=== PATIENT | male | born 1935 | race Caucasian/White ===

== ENCOUNTER 2023-04-16 09:45 | Inpatient (IN) | payer MEDICARE, OTHER ==
[2023-04-16] MEDS ORDERED: Ondansetron PF 4 MG/2 ML Vial ONE (10:12)
[2023-04-16] MEDS ORDERED: Morphine 4 MG/ML VIAL ONE (10:12)
[2023-04-16 10:32] LABS: #Eosinphils 0.1 10x3/uL (0.0-0.5); #Monocytes 0.3 10x3/uL (0.0-1.1); #Neutrophils 7.4 10x3/uL (1.5-8.4); %Basophils 0.4 % (0.0-2.0); %Lymphocytes 17.1 % (18.0-47.0); %Monocytes 3.1 % (0.0-10.0); %Neutrophils 77.8 % (40.0-75.0); Hematocrit 41.9 % (38.8-50.0); Hemoglobin 14.1 g/dL (13.5-17.5); Mean Corpuscular HGB CONC 33.7 g/dL (32.0-36.0); Mean Corpuscular Hemoglobin 28.3 pg (27.0-33.0); Mean Platelet Volume 10.2 fl (7.4-10.4); Platelet Count 197 10x3/uL (150-450); RBC Distribution Width 14.6 % (11.5-14.5); Red Blood Cell (RBC) Count 4.99 10x6/uL (4.32-5.72); White Blood Cell (WBC) Count 9.5 10x3/uL (3.5-10.5)
[2023-04-16 10:50] LABS: ALT (SGPT) 102 U/L (8-55); AST (SGOT) 203 U/L (5-34); Albumin 3.8 g/dL (3.4-4.8); Alkaline Phosphatase 240 U/L (40-110); Anion Gap 17 mmol/L (10-20); BUN (Urea Nitrogen) 19 mg/dL (8.4-25.7); Bilirubin, Total 1.5 mg/dL (0.2-1.2); Calc. Creatinine Clearance 0 mL/min (70-130); Calcium 9.8 mg/dL (7.8-10.44); Carbon Dioxide 19 mmol/L (23-31); Chloride 105 mmol/L (98-107); Estimated GFR 66; Globulin 2.1 g/dL (2.4-3.5); Glucose 181 mg/dL (83-110); Magnesium 1.9 mg/dL (1.6-2.6); Potassium 4.2 mmol/L (3.5-5.1); Protein, Total 5.9 g/dL (5.8-8.1); Sodium 137 mmol/L (136-145)
[2023-04-16 10:59] LABS: Troponin I Less than 0.010 ng/mL (< 0.028)
[2023-04-16 11:19] LABS: Lipase 4643 U/L (8-78)
[2023-04-16] MEDS ORDERED: Piperacillin/Tazobactam 4.5 GM VIAL ONE (12:19)
[2023-04-16] MEDS ORDERED: Bupivacaine PF 0.5% 30 ML VIAL ONE (12:30)
[2023-04-16] MEDS ORDERED: Iopamidol 30 ML ONE (12:31)
[2023-04-16] MEDS ORDERED: Ondansetron ODT 4 MG TAB PO PRN (12:48)
[2023-04-16] MEDS ORDERED: TETANUS, DIPHTHERIA TOX,ADULT (TDVAX) 0.5 ML VIAL IM ONE (12:48)
[2023-04-16] MEDS ORDERED: Ondansetron PF 4 MG/2 ML Vial IVP PRN (12:48)
[2023-04-16] MEDS ORDERED: hydrALAZINE 20 MG/ML VIAL SLOW IVP PRN (12:48)
[2023-04-16] MEDS ORDERED: Acetaminophen 500 MG TAB PO SCH (13:00)
[2023-04-16] MEDS ORDERED: Iopamidol 370 76% 100 ML VIAL ONE (13:53)
[2023-04-16] MEDS ORDERED: Dexamethasone 4 mg/ml Vial ONE (14:22)
[2023-04-16] MEDS ORDERED: Glycopyrrolate 0.2 MG/ML 5 ML SYRINGE ONE (14:22)
[2023-04-16] MEDS ORDERED: Lidocaine 2% PF 5 ML VIAL ONE (14:22)
[2023-04-16] MEDS ORDERED: Fentanyl 250 MCG/5 ML VIAL ONE (14:22)
[2023-04-16] MEDS ORDERED: Rocuronium Bromide 10 MG/ML (10ML VIAL) ONE (14:22)
[2023-04-16] MEDS ORDERED: PROPOFOL 20 ML ONE ×2 (14:22→15:12)
[2023-04-16] MEDS ORDERED: Glucagon 1 MG/ML KIT ONE (14:39)
[2023-04-16] MEDS ORDERED: ePHEDrine Sulfate 50 MG/10 ML VIAL ONE (14:43)
[2023-04-16] MEDS ORDERED: SUGAMMADEX SODIUM 200 MG/2 ML VIAL ONE (14:49)
[2023-04-16 16:04] LABS: Bilirubin 1+ (Negative); Blood, Urine 10 (Negative); Clarity Clear (Clear); Glucose, Urine (Dipstick) Normal (Negative); Ketone, Urine Negative (Negative); Leukocyte Negative (Negative); Nitrite Positive (Negative); Protein, Urine (Dipstick) 15 mg/dl (Neg-Trace); Specific Gravity, Urine 1.015 (1.005-1.030)
[2023-04-16 16:18] LABS: Bacteria/HPF Rare-Few HPF (None Seen); RBC/HPF 0-3 HPF (0-3); Squamous Epithelial 0-3 HPF (0-3); WBC/HPF 0-3 HPF (0-3)
[2023-04-16] MEDS: Piperacillin/Tazobactam 3.375 GM in Sodium Chloride 0.9% 100 ML IVPB SCH (17:09)
[2023-04-16] MEDS: Acetaminophen 500 MG TAB PO SCH ×2 (17:12→20:43)
[2023-04-16] MEDS: Sodium Chloride 0.45% 1,000 ML IV SCH ×3 (17:20→23:52)
[2023-04-16] MEDS: Ketorolac Tromethamine 30 MG/ML VIAL IVP SCH ×2 (18:26→23:52)
[2023-04-16] MEDS: Tamsulosin HCl 0.4 MG CAP PO SCH (20:43)
[2023-04-17 03:01] LABS: Anion Gap 13 mmol/L (10-20); BUN (Urea Nitrogen) 22 mg/dL (8.4-25.7); Calc. Creatinine Clearance 61 mL/min (70-130); Calcium 9.1 mg/dL (7.8-10.44); Carbon Dioxide 20 mmol/L (23-31); Chloride 105 mmol/L (98-107); Estimated GFR 70; Glucose 147 mg/dL (83-110); Potassium 4.9 mmol/L (3.5-5.1); Sodium 133 mmol/L (136-145)
[2023-04-17 03:16] LABS: #Monocytes 0.7 10x3/uL (0.0-1.1); #Neutrophils 11.5 10x3/uL (1.5-8.4); %Basophils 0.1 % (0.0-2.0); %Lymphocytes 9.1 % (18.0-47.0); %Monocytes 4.9 % (0.0-10.0); %Neutrophils 85.5 % (40.0-75.0); Hematocrit 38.3 % (38.8-50.0); Hemoglobin 13.1 g/dL (13.5-17.5); Mean Corpuscular HGB CONC 34.2 g/dL (32.0-36.0); Mean Corpuscular Hemoglobin 28.1 pg (27.0-33.0); Mean Corpuscular Volume 82.2 fl (81.2-95.1); Mean Platelet Volume 9.7 fl (7.4-10.4); Platelet Count 183 10x3/uL (150-450); RBC Distribution Width 14.9 % (11.5-14.5); Red Blood Cell (RBC) Count 4.66 10x6/uL (4.32-5.72); White Blood Cell (WBC) Count 13.4 10x3/uL (3.5-10.5)
[2023-04-17 03:18] LABS: Lipase 1633 U/L (8-78)
[2023-04-17 04:09] LABS: ALT (SGPT) 246 U/L (8-55); AST (SGOT) 310 U/L (5-34); Albumin 3.2 g/dL (3.4-4.8); Alkaline Phosphatase 246 U/L (40-110); Bilirubin, Total 3.3 mg/dL (0.2-1.2); Globulin 2.2 g/dL (2.4-3.5); Protein, Total 5.4 g/dL (5.8-8.1)
[2023-04-17] MEDS: Ketorolac Tromethamine 30 MG/ML VIAL IVP SCH ×2 (05:48→12:06)
[2023-04-17] MEDS: Sodium Chloride 0.45% 1,000 ML IV SCH ×3 (06:22→20:14)
[2023-04-17] MEDS: Piperacillin/Tazobactam 3.375 GM in Sodium Chloride 0.9% 100 ML IVPB SCH ×3 (07:51→17:43)
[2023-04-17] MEDS: dilTIAZem CD 120 MG CAP PO SCH (07:52)
[2023-04-17] MEDS: Acetaminophen 500 MG TAB PO SCH ×4 (07:52→20:15)
[2023-04-17] MEDS ORDERED: Pantoprazole 40 MG VIAL IVP SCH (09:00)
[2023-04-17] MEDS ORDERED: Iopamidol 30 ML ONE (13:39)
[2023-04-17] MEDS ORDERED: Indomethacin 50 MG SUPP ONE (13:40)
[2023-04-17] MEDS: Morphine 2 MG/ML VIAL SLOW IVP PRN (14:12)
[2023-04-17] MEDS ORDERED: fentaNYL 50 mcg/mL 1 mL Vial ONE (14:31)
[2023-04-17] MEDS ORDERED: Succinylcholine 200 MG/10 ml SYRINGE FS ONE (14:31)
[2023-04-17] MEDS ORDERED: Dexamethasone 4 mg/ml Vial ONE (14:31)
[2023-04-17] MEDS ORDERED: Lidocaine 1% PF 5 ML VIAL ONE (14:31)
[2023-04-17] MEDS ORDERED: Ondansetron PF 4 MG/2 ML Vial ONE (14:31)
[2023-04-17] MEDS ORDERED: PHENYLEPHRINE-NS 100 MCG/ML 10 ML SYRINGE ONE ×2 (14:31→16:09)
[2023-04-17] MEDS ORDERED: PROPOFOL 20 ML ONE (14:31)
[2023-04-17] MEDS ORDERED: Glucagon 1 MG/ML KIT ONE (16:25)
[2023-04-17] MEDS: Phenazopyridine HCl 95 MG TAB PO SCH (20:15)
[2023-04-17] MEDS: Pantoprazole 40 MG VIAL IVP SCH (20:15)
[2023-04-17] MEDS: Tamsulosin HCl 0.4 MG CAP PO SCH (20:15)
[2023-04-18] MEDS: Piperacillin/Tazobactam 3.375 GM in Sodium Chloride 0.9% 100 ML IVPB SCH ×3 (00:03→17:15)
[2023-04-18] MEDS: Sodium Chloride 0.45% 1,000 ML IV SCH ×3 (03:26→17:17)
[2023-04-18 04:10] LABS: Anion Gap 16 mmol/L (10-20); BUN (Urea Nitrogen) 29 mg/dL (8.4-25.7); Calc. Creatinine Clearance 57 mL/min (70-130); Calcium 8.9 mg/dL (7.8-10.44); Carbon Dioxide 17 mmol/L (23-31); Chloride 103 mmol/L (98-107); Estimated GFR 65; Glucose 126 mg/dL (83-110); Potassium 4.5 mmol/L (3.5-5.1); Sodium 131 mmol/L (136-145)
[2023-04-18 04:11] LABS: ALT (SGPT) 216 U/L (8-55); AST (SGOT) 170 U/L (5-34); Albumin 3.2 g/dL (3.4-4.8); Alkaline Phosphatase 227 U/L (40-110); Bilirubin, Direct 4.4 mg/dL (0.1-0.3); Bilirubin, Total 5.1 mg/dL (0.2-1.2); Protein, Total 5.4 g/dL (5.8-8.1)
[2023-04-18 04:22] LABS: Lipase 1378 U/L (8-78)
[2023-04-18 04:28] LABS: #Monocytes 0.5 10x3/uL (0.0-1.1); #Neutrophils 16.2 10x3/uL (1.5-8.4); %Basophils 0.2 % (0.0-2.0); %Lymphocytes 7.1 % (18.0-47.0); %Monocytes 2.6 % (0.0-10.0); %Neutrophils 89.3 % (40.0-75.0); Hematocrit 38.1 % (38.8-50.0); Mean Corpuscular HGB CONC 34.1 g/dL (32.0-36.0); Mean Corpuscular Volume 82.1 fl (81.2-95.1); Mean Platelet Volume 10.1 fl (7.4-10.4); Platelet Count 193 10x3/uL (150-450); RBC Distribution Width 15.2 % (11.5-14.5); Red Blood Cell (RBC) Count 4.64 10x6/uL (4.32-5.72); White Blood Cell (WBC) Count 18.1 10x3/uL (3.5-10.5)
[2023-04-18] MEDS: Morphine 4 MG/ML VIAL SLOW IVP PRN (09:12)
[2023-04-18] MEDS: Pantoprazole 40 MG VIAL IVP SCH ×2 (09:17→22:32)
[2023-04-18] MEDS: dilTIAZem CD 120 MG CAP PO SCH (10:02)
[2023-04-18] MEDS: Phenazopyridine HCl 95 MG TAB PO SCH ×3 (10:03→17:20)
[2023-04-18] MEDS: Acetaminophen 500 MG TAB PO SCH ×4 (10:03→22:31)
[2023-04-18] MEDS: Sodium Bicarbonate Tab 325 MG TAB PO SCH (10:18)
[2023-04-18] MEDS ORDERED: Furosemide 20 MG/2 ML VIAL SLOW IVP SCH (11:30)
[2023-04-18] MEDS: Morphine 2 MG/ML VIAL SLOW IVP PRN (14:47)
[2023-04-18] MEDS: Tamsulosin HCl 0.4 MG CAP PO SCH (22:31)
[2023-04-19] MEDS: Sodium Chloride 0.45% 1,000 ML IV SCH ×2 (01:00→07:40)
[2023-04-19] MEDS: Piperacillin/Tazobactam 3.375 GM in Sodium Chloride 0.9% 100 ML IVPB SCH ×3 (01:21→18:15)
[2023-04-19] MEDS: Morphine 4 MG/ML VIAL SLOW IVP PRN (01:32)
[2023-04-19 04:54] LABS: ALT (SGPT) 170 U/L (8-55); AST (SGOT) 95 U/L (5-34); Alkaline Phosphatase 198 U/L (40-110); Anion Gap 14 mmol/L (10-20); BUN (Urea Nitrogen) 23 mg/dL (8.4-25.7); Bilirubin, Total 5.2 mg/dL (0.2-1.2); Calc. Creatinine Clearance 72 mL/min (70-130); Calcium 8.8 mg/dL (7.8-10.44); Carbon Dioxide 20 mmol/L (23-31); Chloride 99 mmol/L (98-107); Estimated GFR 83; Globulin 2.2 g/dL (2.4-3.5); Glucose 94 mg/dL (83-110); Lipase 251 U/L (8-78); Protein, Total 5.2 g/dL (5.8-8.1); Sodium 129 mmol/L (136-145)
[2023-04-19 04:56] LABS: #Monocytes 0.8 10x3/uL (0.0-1.1); #Neutrophils 16.4 10x3/uL (1.5-8.4); %Basophils 0.1 % (0.0-2.0); %Eosinophils 0.1 % (0.0-6.0); %Monocytes 4.2 % (0.0-10.0); %Neutrophils 86.6 % (40.0-75.0); Hematocrit 36.6 % (38.8-50.0); Hemoglobin 12.5 g/dL (13.5-17.5); Mean Corpuscular HGB CONC 34.2 g/dL (32.0-36.0); Mean Corpuscular Hemoglobin 27.5 pg (27.0-33.0); Mean Corpuscular Volume 80.6 fl (81.2-95.1); Mean Platelet Volume 9.9 fl (7.4-10.4); Platelet Count 211 10x3/uL (150-450); RBC Distribution Width 15.3 % (11.5-14.5); Red Blood Cell (RBC) Count 4.54 10x6/uL (4.32-5.72); White Blood Cell (WBC) Count 18.9 10x3/uL (3.5-10.5)
[2023-04-19] MEDS ORDERED: Furosemide 40 MG/4 ML VIAL ONE ×2 (08:16→08:40)
[2023-04-19] MEDS ORDERED: Metoprolol Tartrate 5 MG/5 ML VIAL ONE ×2 (08:27→08:37)
[2023-04-19] MEDS: Metoprolol Tartrate 5 MG/5 ML VIAL IVP PRN ×2 (08:27→08:37)
[2023-04-19] MEDS ORDERED: Ipratropium/Albuterol 3 ML NEB ONE (08:33)
[2023-04-19] MEDS ORDERED: Furosemide 100 MG/10 ML VIAL SLOW IVP SCH (09:00)
[2023-04-19] MEDS: Morphine 2 MG/ML VIAL SLOW IVP PRN (09:00)
[2023-04-19] MEDS ORDERED: Vancomycin 1.5 GRAM/300 ML BAG 1.5 GM in Premix Bag 1 BAG IVPB SCH ×2 (11:30→15:00)
[2023-04-19] MEDS: Acetaminophen 500 MG TAB PO SCH ×5 (12:32→20:19)
[2023-04-19] MEDS: Phenazopyridine HCl 95 MG TAB PO SCH ×4 (12:33→18:07)
[2023-04-19] MEDS: dilTIAZem CD 120 MG CAP PO SCH (12:52)
[2023-04-19] MEDS: Pantoprazole 40 MG VIAL IVP SCH ×2 (12:53→20:20)
[2023-04-19] MEDS ORDERED: Sodium Chloride 0.9% 250 ML IV SCH (13:00)
[2023-04-19] MEDS: Azithromycin 500 MG in Sodium Chloride 0.9% 250 ML 250 ML IVPB SCH (14:57)
[2023-04-19] MEDS: Sodium Bicarbonate Tab 325 MG TAB PO SCH (15:05)
[2023-04-19 15:25] LABS: Troponin I 0.015 ng/mL (< 0.028)
[2023-04-19] MEDS: Tamsulosin HCl 0.4 MG CAP PO SCH (20:20)
[2023-04-20] MEDS ORDERED: Haloperidol Lactate 5 MG/ML VIAL IM SCH (00:15)
[2023-04-20] MEDS: Morphine 2 MG/ML VIAL SLOW IVP PRN ×3 (00:20→22:24)
[2023-04-20] MEDS: Piperacillin/Tazobactam 3.375 GM in Sodium Chloride 0.9% 100 ML IVPB SCH ×3 (00:31→17:18)
[2023-04-20 07:34] LABS: ALT (SGPT) 92 U/L (8-55); AST (SGOT) 37 U/L (5-34); Alkaline Phosphatase 160 U/L (40-110); Anion Gap 15 mmol/L (10-20); BUN (Urea Nitrogen) 27 mg/dL (8.4-25.7); Bilirubin, Total 5.7 mg/dL (0.2-1.2); Calc. Creatinine Clearance 59 mL/min (70-130); Carbon Dioxide 21 mmol/L (23-31); Chloride 100 mmol/L (98-107); Estimated GFR 68; Globulin 2.1 g/dL (2.4-3.5); Glucose 101 mg/dL (83-110); Potassium 3.6 mmol/L (3.5-5.1); Protein, Total 5.1 g/dL (5.8-8.1); Sodium 132 mmol/L (136-145)
[2023-04-20 07:35] LABS: Hematocrit 34.4 % (38.8-50.0); Hemoglobin 11.8 g/dL (13.5-17.5); Mean Corpuscular HGB CONC 34.3 g/dL (32.0-36.0); Mean Corpuscular Hemoglobin 27.8 pg (27.0-33.0); Mean Corpuscular Volume 80.9 fl (81.2-95.1); Mean Platelet Volume 10.1 fl (7.4-10.4); Platelet Count 185 10x3/uL (150-450); RBC Distribution Width 15.6 % (11.5-14.5); Red Blood Cell (RBC) Count 4.25 10x6/uL (4.32-5.72); White Blood Cell (WBC) Count 15.2 10x3/uL (3.5-10.5)
[2023-04-20 08:20] LABS: MDiff Complete? YES
[2023-04-20 08:23] LABS: Band 8 % (5-11); Lymphocytes 9 % (21-51); Monocytes 2 % (0-10); Neutrophil 81 % (42-75); RBC Morph Comment Within Normal Limits
[2023-04-20 08:24] LABS: Platelet Adequacy Comment Appears Adequate
[2023-04-20] MEDS: Pantoprazole 40 MG VIAL IVP SCH ×2 (08:51→20:53)
[2023-04-20] MEDS: Sodium Bicarbonate Tab 325 MG TAB PO SCH (09:37)
[2023-04-20] MEDS: dilTIAZem CD 120 MG CAP PO SCH (09:37)
[2023-04-20] MEDS: Acetaminophen 500 MG TAB PO SCH ×4 (09:37→20:52)
[2023-04-20] MEDS: Phenazopyridine HCl 95 MG TAB PO SCH ×3 (09:37→16:34)
[2023-04-20] MEDS ORDERED: Furosemide 40 MG/4 ML VIAL SLOW IVP SCH (10:00)
[2023-04-20] MEDS: Azithromycin 500 MG in Sodium Chloride 0.9% 250 ML 250 ML IVPB SCH (10:26)
[2023-04-20] MEDS: VANCOMYCIN 1.25 GM/250 ML BAG 1.25 GM in Premix Bag 1 BAG IVPB SCH (15:19)
[2023-04-20] MEDS: Tamsulosin HCl 0.4 MG CAP PO SCH (20:53)
[2023-04-21] MEDS: Piperacillin/Tazobactam 3.375 GM in Sodium Chloride 0.9% 100 ML IVPB SCH ×3 (00:33→17:26)
[2023-04-21 03:41] LABS: #Eosinphils 0.1 10x3/uL (0.0-0.5); #Monocytes 0.6 10x3/uL (0.0-1.1); #Neutrophils 11.7 10x3/uL (1.5-8.4); %Basophils 0.2 % (0.0-2.0); %Eosinophils 0.5 % (0.0-6.0); %Lymphocytes 10.2 % (18.0-47.0); %Monocytes 4.1 % (0.0-10.0); %Neutrophils 84.1 % (40.0-75.0); Hematocrit 31.4 % (38.8-50.0); Hemoglobin 10.9 g/dL (13.5-17.5); Mean Corpuscular HGB CONC 34.7 g/dL (32.0-36.0); Mean Corpuscular Hemoglobin 27.9 pg (27.0-33.0); Mean Corpuscular Volume 80.5 fl (81.2-95.1); Mean Platelet Volume 10.3 fl (7.4-10.4); Platelet Count 190 10x3/uL (150-450); RBC Distribution Width 15.3 % (11.5-14.5); White Blood Cell (WBC) Count 13.9 10x3/uL (3.5-10.5)
[2023-04-21 03:48] LABS: ALT (SGPT) 61 U/L (8-55); AST (SGOT) 28 U/L (5-34); Alkaline Phosphatase 143 U/L (40-110); Anion Gap 12 mmol/L (10-20); BUN (Urea Nitrogen) 21 mg/dL (8.4-25.7); Bilirubin, Total 5.5 mg/dL (0.2-1.2); Calc. Creatinine Clearance 73 mL/min (70-130); Calcium 9.2 mg/dL (7.8-10.44); Carbon Dioxide 24 mmol/L (23-31); Chloride 98 mmol/L (98-107); Estimated GFR 84; Glucose 111 mg/dL (83-110); Sodium 131 mmol/L (136-145)
[2023-04-21] MEDS: Potassium Chloride 20 MEQ in Premix Bag 1 BAG IVPB SCH ×3 (04:35→08:14)
[2023-04-21 04:50] LABS: Magnesium 1.7 mg/dL (1.6-2.6)
[2023-04-21] MEDS: Pantoprazole 40 MG VIAL IVP SCH ×2 (08:11→20:50)
[2023-04-21] MEDS: Acetaminophen 500 MG TAB PO SCH ×4 (08:12→20:49)
[2023-04-21] MEDS: Sodium Bicarbonate Tab 325 MG TAB PO SCH (08:12)
[2023-04-21] MEDS: dilTIAZem CD 120 MG CAP PO SCH (08:13)
[2023-04-21] MEDS: Phenazopyridine HCl 95 MG TAB PO SCH ×3 (08:14→17:25)
[2023-04-21] MEDS ORDERED: Ketorolac Tromethamine 30 MG/ML VIAL IM SCH (10:00)
[2023-04-21] MEDS ORDERED: Ipratropium/Albuterol 3 ML NEB ONE (11:05)
[2023-04-21] MEDS ORDERED: Ipratropium/Albuterol 3 ML NEB NEB SCH (12:00)
[2023-04-21] MEDS: Azithromycin 500 MG in Sodium Chloride 0.9% 250 ML 250 ML IVPB SCH (12:23)
[2023-04-21] MEDS: Bisacodyl 10 MG SUPP PR SCH ×2 (12:23→12:38)
[2023-04-21 14:26] LABS: Vancomycin, Trough 8.3 ug/mL
[2023-04-21] MEDS: VANCOMYCIN 1.25 GM/250 ML BAG 1.25 GM in Premix Bag 1 BAG IVPB SCH (15:24)
[2023-04-21] MEDS ORDERED: Morphine 2 MG/ML VIAL SLOW IVP SCH (15:30)
[2023-04-21] MEDS: Ipratropium/Albuterol 3 ML NEB NEB SCH (19:25)
[2023-04-21] MEDS: Tamsulosin HCl 0.4 MG CAP PO SCH (20:49)
[2023-04-22] MEDS: Piperacillin/Tazobactam 3.375 GM in Sodium Chloride 0.9% 100 ML IVPB SCH ×3 (00:02→16:17)
[2023-04-22] MEDS: Ipratropium/Albuterol 3 ML NEB NEB SCH ×4 (00:24→20:45)
[2023-04-22 03:47] LABS: #Eosinphils 0.1 10x3/uL (0.0-0.5); #Monocytes 0.6 10x3/uL (0.0-1.1); %Basophils 0.3 % (0.0-2.0); %Eosinophils 1.2 % (0.0-6.0); %Lymphocytes 10.4 % (18.0-47.0); %Neutrophils 81.8 % (40.0-75.0); Hematocrit 32.9 % (38.8-50.0); Hemoglobin 11.2 g/dL (13.5-17.5); Mean Corpuscular Hemoglobin 27.8 pg (27.0-33.0); Mean Corpuscular Volume 81.6 fl (81.2-95.1); Mean Platelet Volume 10.2 fl (7.4-10.4); Platelet Count 212 10x3/uL (150-450); RBC Distribution Width 15.5 % (11.5-14.5); Red Blood Cell (RBC) Count 4.03 10x6/uL (4.32-5.72)
[2023-04-22 04:21] LABS: ALT (SGPT) 61 U/L (8-55); AST (SGOT) 45 U/L (5-34); Albumin 2.9 g/dL (3.4-4.8); Alkaline Phosphatase 185 U/L (40-110); Anion Gap 13 mmol/L (10-20); BUN (Urea Nitrogen) 24 mg/dL (8.4-25.7); Bilirubin, Total 4.9 mg/dL (0.2-1.2); Calc. Creatinine Clearance 79 mL/min (70-130); Calcium 9.9 mg/dL (7.8-10.44); Carbon Dioxide 24 mmol/L (23-31); Chloride 100 mmol/L (98-107); Estimated GFR 86; Globulin 2.3 g/dL (2.4-3.5); Glucose 131 mg/dL (83-110); Potassium 3.6 mmol/L (3.5-5.1); Protein, Total 5.2 g/dL (5.8-8.1); Sodium 133 mmol/L (136-145)
[2023-04-22] MEDS: Magnesium Citrate 300 ML BOT PO SCH ×2 (05:12→05:31)
[2023-04-22 05:44] VITALS: BMI 26.9
[2023-04-22] MEDS ORDERED: Simethicone Chewable 80 MG TAB PO SCH (06:00)
[2023-04-22] MEDS: Pantoprazole 40 MG VIAL IVP SCH ×2 (07:59→20:24)
[2023-04-22] MEDS: Acetaminophen 500 MG TAB PO SCH ×5 (08:04→20:24)
[2023-04-22] MEDS: Phenazopyridine HCl 95 MG TAB PO SCH ×3 (08:06→17:53)
[2023-04-22] MEDS: Sodium Bicarbonate Tab 325 MG TAB PO SCH (08:06)
[2023-04-22] MEDS: dilTIAZem CD 120 MG CAP PO SCH (08:07)
[2023-04-22] MEDS: VANCOMYCIN 1.25 GM/250 ML BAG 1.25 GM in Premix Bag 1 BAG IVPB SCH (09:23)
[2023-04-22] MEDS ORDERED: traMADol HCl 50 MG TAB PO PRN (10:09)
[2023-04-22] MEDS: Azithromycin 500 MG in Sodium Chloride 0.9% 250 ML 250 ML IVPB SCH (11:17)
[2023-04-22] MEDS ORDERED: Bisacodyl 10 MG SUPP PR SCH (11:30)
[2023-04-22] MEDS ORDERED: Bisacodyl 10 MG SUPP PR PRN (12:19)
[2023-04-22] MEDS ORDERED: Morphine 2 MG/ML VIAL SLOW IVP SCH (12:45)
[2023-04-22] MEDS: Tamsulosin HCl 0.4 MG CAP PO SCH (20:24)
[2023-04-23] MEDS: Ipratropium/Albuterol 3 ML NEB NEB SCH ×4 (01:20→19:25)
[2023-04-23] MEDS: Piperacillin/Tazobactam 3.375 GM in Sodium Chloride 0.9% 100 ML IVPB SCH ×3 (01:24→17:18)
[2023-04-23 02:06] LABS: #Eosinphils 0.1 10x3/uL (0.0-0.5); #Monocytes 0.6 10x3/uL (0.0-1.1); #Neutrophils 7.7 10x3/uL (1.5-8.4); %Basophils 0.2 % (0.0-2.0); %Eosinophils 0.8 % (0.0-6.0); %Lymphocytes 15.1 % (18.0-47.0); %Monocytes 6.2 % (0.0-10.0); %Neutrophils 75.6 % (40.0-75.0); Hematocrit 31.5 % (38.8-50.0); Hemoglobin 10.8 g/dL (13.5-17.5); Mean Corpuscular HGB CONC 34.3 g/dL (32.0-36.0); Mean Corpuscular Hemoglobin 28.1 pg (27.0-33.0); Mean Platelet Volume 9.9 fl (7.4-10.4); Platelet Count 233 10x3/uL (150-450); RBC Distribution Width 15.6 % (11.5-14.5); Red Blood Cell (RBC) Count 3.84 10x6/uL (4.32-5.72); White Blood Cell (WBC) Count 10.1 10x3/uL (3.5-10.5)
[2023-04-23 02:11] LABS: Vancomycin, Trough 10.8 ug/mL
[2023-04-23] MEDS: VANCOMYCIN 1.25 GM/250 ML BAG 1.25 GM in Premix Bag 1 BAG IVPB SCH (04:28)
[2023-04-23 09:54] LABS: ALT (SGPT) 67 U/L (8-55); AST (SGOT) 52 U/L (5-34); Alkaline Phosphatase 224 U/L (40-110); Anion Gap 14 mmol/L (10-20); BUN (Urea Nitrogen) 26 mg/dL (8.4-25.7); Bilirubin, Direct 3.6 mg/dL (0.1-0.3); Bilirubin, Total 4.6 mg/dL (0.2-1.2); Calc. Creatinine Clearance 83 mL/min (70-130); Calcium 9.4 mg/dL (7.8-10.44); Carbon Dioxide 25 mmol/L (23-31); Chloride 102 mmol/L (98-107); Estimated GFR 88; Glucose 125 mg/dL (83-110); Potassium 4.1 mmol/L (3.5-5.1); Protein, Total 5.2 g/dL (5.8-8.1); Sodium 137 mmol/L (136-145)
[2023-04-23] MEDS: Pantoprazole 40 MG VIAL IVP SCH ×2 (10:43→20:17)
[2023-04-23] MEDS: fentaNYL 50 mcg/mL 1 mL Vial SLOW IVP PRN ×2 (11:20→17:18)
[2023-04-23] MEDS: Acetaminophen 500 MG TAB PO SCH ×3 (12:12→20:03)
[2023-04-23] MEDS: Sodium Bicarbonate Tab 325 MG TAB PO SCH (12:13)
[2023-04-23] MEDS: Polyethylene Glycol 3350 17 GM Packet PO SCH ×2 (12:13→20:03)
[2023-04-23] MEDS: Phenazopyridine HCl 95 MG TAB PO SCH ×3 (12:13→17:08)
[2023-04-23] MEDS: dilTIAZem CD 120 MG CAP PO SCH (12:57)
[2023-04-23] MEDS: Tamsulosin HCl 0.4 MG CAP PO SCH (20:03)
[2023-04-24] MEDS: Piperacillin/Tazobactam 3.375 GM in Sodium Chloride 0.9% 100 ML IVPB SCH ×3 (00:39→16:49)
[2023-04-24] MEDS: Ipratropium/Albuterol 3 ML NEB NEB SCH ×3 (01:15→13:45)
[2023-04-24 03:52] LABS: #Basophils 0.1 10x3/uL (0.0-0.2); #Eosinphils 0.1 10x3/uL (0.0-0.5); #Monocytes 0.7 10x3/uL (0.0-1.1); #Neutrophils 8.4 10x3/uL (1.5-8.4); %Basophils 0.5 % (0.0-2.0); %Eosinophils 0.9 % (0.0-6.0); %Lymphocytes 12.5 % (18.0-47.0); %Monocytes 6.7 % (0.0-10.0); Hematocrit 32.2 % (38.8-50.0); Hemoglobin 10.7 g/dL (13.5-17.5); Mean Corpuscular HGB CONC 33.2 g/dL (32.0-36.0); Mean Corpuscular Hemoglobin 27.6 pg (27.0-33.0); Platelet Count 261 10x3/uL (150-450); RBC Distribution Width 15.9 % (11.5-14.5); Red Blood Cell (RBC) Count 3.88 10x6/uL (4.32-5.72)
[2023-04-24 04:03] LABS: ALT (SGPT) 78 U/L (8-55); AST (SGOT) 65 U/L (5-34); Alkaline Phosphatase 257 U/L (40-110); Anion Gap 13 mmol/L (10-20); BUN (Urea Nitrogen) 32 mg/dL (8.4-25.7); Bilirubin, Direct 2.6 mg/dL (0.1-0.3); Bilirubin, Total 3.7 mg/dL (0.2-1.2); Calc. Creatinine Clearance 84 mL/min (70-130); Calcium 9.2 mg/dL (7.8-10.44); Carbon Dioxide 24 mmol/L (23-31); Chloride 103 mmol/L (98-107); Estimated GFR 88; Glucose 122 mg/dL (83-110); Potassium 4.3 mmol/L (3.5-5.1); Protein, Total 5.3 g/dL (5.8-8.1); Sodium 136 mmol/L (136-145)
[2023-04-24] MEDS: Polyethylene Glycol 3350 17 GM Packet PO SCH (08:32)
[2023-04-24] MEDS: Pantoprazole 40 MG VIAL IVP SCH (08:32)
[2023-04-24] MEDS: Acetaminophen 500 MG TAB PO SCH ×3 (08:33→16:49)
[2023-04-24] MEDS: dilTIAZem CD 120 MG CAP PO SCH (08:33)
[2023-04-24] MEDS: Sodium Bicarbonate Tab 325 MG TAB PO SCH (08:33)
[2023-04-24] MEDS: Phenazopyridine HCl 95 MG TAB PO SCH ×2 (09:25→13:03)
[2023-04-24] MEDS: fentaNYL 50 mcg/mL 1 mL Vial SLOW IVP PRN (12:28)
[2023-04-24 15:52] VITALS: BP 128/54; TEMP 98.6
== END 2023-04-24 19:01 | disposition hospice, home (50) | DRG 417 ==
LOC: CSHERS 09:45 → CSHIMCU 12:48 → CSHTELE 04-18 18:50 → CSHIMCU 04-19 13:39
PROVIDERS: ADMIT Specialist; ATTEND Specialist
PROC: 0FT44ZZ Resection of Gallbladder, Percutaneous Endoscopic Approach (ICD-10-PCS; principal; 2023-04-16)
PROC: BF111ZZ Fluoroscopy of Biliary and Pancreatic Ducts using Low Osmolar Contrast (ICD-10-PCS; 2023-04-16)
PROC: 3E033XZ Introduction of Vasopressor into Peripheral Vein, Percutaneous Approach (ICD-10-PCS; 2023-04-16)
PROC: 0F7C8ZZ Dilation of Ampulla of Vater, Via Natural or Artificial Opening Endoscopic (ICD-10-PCS; 2023-04-17)
PROC: 5A09357 Assistance with Respiratory Ventilation, Less than 24 Consecutive Hours, Continuous Positive Airway Pressure (ICD-10-PCS; 2023-04-17)
PROC: 0F798ZZ Dilation of Common Bile Duct, Via Natural or Artificial Opening Endoscopic (ICD-10-PCS; 2023-04-17)
DX: K85.10 Biliary acute pancreatitis without necrosis or infection (principal); I50.31 Acute diastolic (congestive) heart failure; J18.9 Pneumonia, unspecified organism; J96.01 Acute respiratory failure with hypoxia; C91.10 Chronic lymphocytic leukemia of B-cell type not having achieved remission; I42.9 Cardiomyopathy, unspecified; N39.0 Urinary tract infection, site not specified; E87.1 Hypo-osmolality and hyponatremia; G93.1 Anoxic brain damage, not elsewhere classified; K80.66 Calculus of gallbladder and bile duct with acute and chronic cholecystitis without obstruction; R21 Rash and other nonspecific skin eruption; R26.81 Unsteadiness on feet; Z51.5 Encounter for palliative care; B96.20 Unspecified Escherichia coli [E. coli] as the cause of diseases classified elsewhere; D63.0 Anemia in neoplastic disease; Z66 Do not resuscitate; N40.1 Benign prostatic hyperplasia with lower urinary tract symptoms; I48.91 Unspecified atrial fibrillation; I11.0 Hypertensive heart disease with heart failure; K44.9 Diaphragmatic hernia without obstruction or gangrene; R94.5 Abnormal results of liver function studies; E80.6 Other disorders of bilirubin metabolism; I95.9 Hypotension, unspecified; K26.9 Duodenal ulcer, unspecified as acute or chronic, without hemorrhage or perforation; J98.4 Other disorders of lung; E87.6 Hypokalemia; D64.89 Other specified anemias; Z98.890 Other specified postprocedural states; Z79.899 Other long term (current) drug therapy; Z82.49 Family history of ischemic heart disease and other diseases of the circulatory system; K57.90 Diverticulosis of intestine, part unspecified, without perforation or abscess without bleeding; R33.8 Other retention of urine; Z88.1 Allergy status to other antibiotic agents; Z85.828 Personal history of other malignant neoplasm of skin; R13.10 Dysphagia, unspecified; K59.00 Constipation, unspecified
CPT/HCPCS: 36415; 47532; 71045; 71275; 74018; 74174; 74177; 74181; 74230; 74330; 76705; 80048; 80053; 80076; 80202; 81001; 83690; 83735; 83880; 84484; 85025; 87081; 87086; 88304; 90714; 93005; 93010; 93306; 94640; 94660; 94760; 94762; 96374; 96375; C1713; C1725; C1889; C9113; J0456; J1100; J1611; J1630; J1650; J1885; J1940; J2001; J2270; J2272; J2405; J2543; J2704; J3010; J3370; J3475; J3480; J3490; J7030; J7050; J7620; P9045; Q9967; S0020